=== PATIENT | female | born 1930 | race Caucasian/White ===

== ENCOUNTER 2016-07-20 14:22 | Inpatient (IN) ==
[~2016-07-20 14:22] MED LIST: PANTOPRAZOLE 40 MG TABLET PO SCH
[2016-07-20] MEDS ORDERED: ALBUTEROL 2.5 MG/3 ML NEB RESP TX PRN ×2 (14:51→17:45)
[2016-07-20] MEDS ORDERED: PANTOPRAZOLE 40 MG VIAL IV SCH (15:00)
[2016-07-20] MEDS: DOPamine 800 MG/250 ML PREMIX IV SCH (16:40)
[2016-07-20 17:24] LABS: Basophils # 0.1 10*3/uL (0.0-0.2); Basophils % 0.2 % (0.0-0.8); Eosinophils # 0.1 10*3/uL (0.0-0.87); Eosinophils % 0.2 % (0.00-10.9); Hemoglobin 12.1 GM/DL (12.0-16.0); Immature Granulocytes % 4.8 %; Immature Granulocytes Absolute 1.47 #; Lymphocytes # 0.8 10*3/uL (1.4-4.0); Lymphocytes % 2.6 % (21.3-54.2); Mean Corpuscular HGB Conc 31.8 GM/DL (32-36); Mean Corpuscular Hemoglobin 29 PG (27-34); Mean Corpuscular Volume 91.3 FL (87-102); Mean Platelet Volume 10.5 FL (9.6-12.0); Monocytes # 2.3 10*3/uL (0.11-0.8); Monocytes % 7.7 % (1.7-12.7); NRBC # 0.03 10*3/uL; Neutrophils # 25.6 10*3/uL (1.4-7.4); Neutrophils % 84.5 % (38.7-73.9); Platelet Count 229 T/CUMM (130-400); Red Blood Count 4.16 MC/CUMM (3.8-5.5); Red Cell Distribution Width 20.1 % (9.3-17.3); White Blood Count 30.3 T/CUMM (4-12)
--- NOTE | 2016-07-20 17:29 | Hospitalist History & Physical ---
Assessment and Plan - Time spent with patient Time spent with patient: Greater than 30 minutes (1) Severe sepsis Status: Acute Assessment and plan: Patient presents with severe sepsis with her suspected UTI/possible healthcare associated pneumonia as well as 2 sirs criteria and evidence of acute kidney injury. She will receive IV hydration, franco cultures, empiric IV antibiotics, O2 , vasopressors as needed. Will repeat lactic acid and proceed with sepsis protocol. Current Visit: No (2) Healthcare-associated pneumonia Status: Acute Assessment and plan: We will begin sepsis protocol and treat appropriately for healthcare associated pneumonia. Current Visit: Yes (3) UTI (urinary tract infection) Status: Acute Assessment and plan: She will be cultured and covered with broad-spectrum IV antibiotics until final ID and sensitivity can be obtained. Current Visit: No (4) Renal failure Status: Acute Assessment and plan: Last documented creatinine I can find is in November 2015 which was 1.20. Suspect this is acute on chronic kidney injury. We will hydrate and treat her underlying sepsis and hypotension. Will attempt to avoid any nephrotoxic agents or insults and follow her renal function on a daily basis. Current Visit: Yes History of Present Illness Chief complaint: Abdominal pain and low blood pressure History of present illness: Ms. Bales is a 85 year old white female resident of the custodial, primary care provider Dr. Haley, who apparently had a fall earlier in the week sustaining laceration which was repaired in the emergency department there. At that time CT head revealed no evidence of bleed or acute change CT cervical spine revealed no acute change in CT of the pelvis revealed no acute change she was sent back to the [facility] and this morning apparently has had increasing weakness and noted to have low blood pressure at which time she was sent to the emergency department at [address] [place] [address]. She was evaluated there and felt to have severe sepsis and she received IV Zosyn as well as a fluid bolus of apparently approximately 250 cc followed by normal saline at 75 cc/h. She was also started on dopamine and is been titrated to keep systolic blood pressure greater than 90. The patient is awake and alert and complains of lower abdominal discomfort as well as generalized body aches. Her daughter states that she did have some loose stools today but denies any nausea or vomiting. There has been no history of fever, chills, chest pain, shortness breath, cough or sputum production, focal motor weakness or paresthesias. She does have a history of coronary artery disease status post [place] years ago and a history of CVA which left some speech difficulty and some right sided weakness. Home Medications Medication Instructions Recorded Confirmed Type Allopurinol 100 mg PO BID 10/02/15 07/20/16 History Citalopram [CeleXA] 20 mg PO DAILY 10/02/15 07/20/16 History Furosemide Tab [Lasix Tab] 40 mg PO DAILY 10/02/15 07/20/16 History Potassium Chloride 20 meq PO QAM 10/02/15 07/20/16 History Pravastatin [Pravachol] 40 mg PO DAILY 10/02/15 07/20/16 History Carvedilol [Coreg] 3.125 mg PO BID #30 tablet 10/05/15 07/20/16 Rx Albuterol Sulfate [Albuterol Neb] 2.5 mg RESP TX Q8HR PRN 12/12/15 07/20/16 History Gabapentin 100 mg PO BID 12/12/15 07/20/16 History Acetaminophen Tab [Tylenol Tab] 325 mg PO Q4H PRN #0 tablet 12/16/15 07/20/16 Rx Alum/Mag/Simeth Max Str Liquid 30 ml PO Q4H 03/22/16 07/20/16 History [Mylanta Max Strength Liquid] Ferrous Sulfate [Ferrous Sulfate 325 mg PO DAILY 03/22/16 07/20/16 History Cap] Potassium Chloride 10 meq PO BEDTIME 03/22/16 07/20/16 History Acetamin/Codeine 300-30 Tab 1 tablet PO Q6H PRN 07/20/16 07/20/16 History [Tylenol/Codeine #3] Neomy Sulf/Bacitrac Zn/Poly 1 applic TOP Q12HR 07/20/16 07/20/16 History [Triple Antibiotic Oint] cephALEXin [Keflex] 500 mg PO Q6HR 07/20/16 07/20/16 History Allergies Allergy/AdvReac Type Severity Reaction Status Date / Time No Known Allergies Allergy Unverified 10/02/15 16:58 Medical,Surgical,& Family Hx - Medical History Cardio: History of: CHF, CAD, Hypertension, [place], Cardiovascular Problems Psychological: History of: Depression Neurology: History of: Cerebrovascular Accident Endocrine: History of: Dyslipidemia Rheumatology: History of;: Rheumatoid Arthritis Gastrointestinal: No history of: Gastrointestinal Bleed Musculoskeletal: History of: Musculoskeletal Problems - Surgical History Cardiac Surgeries: Sugical HX of: Cardiac Catheterization, Cardiac Surgery ( CABG 2000, three-vessel) Reproductive Surgeries: Surgical HX of;: Gynecologic Surgery, Hysterectomy - Family History Family History: Reports;: Family Heart Disease, Family Hypertension Denies;: Family Diabetes - Social History Smoking Status: Never smoker Frequency of Alcohol Use: None Type of Drug Use: None Marital Status: Lives With:: [facility] 12 point system: reviewed and no additional remarkable complaints except as stated Exam - Constitutional General appearance: no acute distress - Head Head exam: Present: normocephalic, atraumatic - Eye Eye exam: Present: EOMI. Absent: scleral icterus Pupils: Present: THERESE - ENT ENT exam: Present: normal oropharynx - Neck Neck exam: Absent: lymphadenopathy, meningismus, tenderness, thyromegaly - Respiratory Respiratory exam: Present: clear to auscultation bilaterally. Absent: accessory muscle use, rales, rhonchi, wheezes - Cardiovascular Cardiovascular exam: Present: regular rate and rhythm, tachycardia. Absent: gallop, systolic murmur - GI/Abdominal GI/Abdominal exam: Present: normal bowel sounds, tenderness (She has tenderness about an ventral hernia which is easily reduced), soft. Absent: distended, organomegaly, rebound - Extremities Exam Extremities exam: Present: normal capillary refill. Absent: calf tenderness, edema - Back Exam Back exam: Present: normal inspection - Neurological Exam Neurological exam: Present: alert, CN II-XII intact, motor sensory deficit (Her strength in her upper extremities appears to be symmetric at approximately 5/5 however she is unable to move either of her lower extremities to command), other (She is oriented to person) - Psychiatric Psychiatric exam: Present: normal affect, normal mood. Absent: agitated, anxious - Skin Skin exam: Present: warm, dry. Absent: erythema, rash Results - Labs CBC & BMP: 07/20/16 17:03 Lab Results: I have reviewed the past 24 hour labs Labs: Laboratory studies performed at [facility] revealed a white blood cell count of 24.89, hematocrit 34%, hemoglobin 10.8, platelet count 201,000, white cell differential reveals 73% bands, 5% monos, 3% lymphs, 19% bands her chemistries reveal a sodium of 133, potassium 4.1, chloride 106, dioxide 14, calcium 7.5, creatinine 2.95, BUN of 58, glucose of 102 with a GFR of 16. Urinalysis revealed 20-50 white blood cells per high-powered field. Lactic acid was 1.8. Stool for occult blood was negative. CT of the abdomen and pelvis revealed bilateral basilar effusions and atelectatic changes, small ventral hernia, minimal diverticulosis without diverticulitis or free fluid, previous hysterectomy, Balser calcinosis, cholelithiasis with multiple gallstones present. Chest x-ray revealed pulmonary hypoinflation and cardiomegaly with early pneumonia in the left lateral lower lobe. KUB revealed unremarkable bowel gas pattern with calcified cholelithiasis. - Diagnostic Findings Procedure: Chest x-ray: report reviewed by me, KUB x-ray: report reviewed by me , CT: report reviewed by me Quality Measures - VTE Contraindication to Pharmacological VTE Prophylaxis: High Risk of Bleeding Sepsis - Sepsis Classification of Sepsis: Severe Sepsis - Physical Exam Respiratory exam: clear to auscultation bilaterally Capillary Refill: Less Than 3 Seconds Peripheral pulses: Radial (L): 3+/4+, Radial (R): 3+/4+ Cardiovascular exam: regular rate and rhythm, tachycardia Skin exam: normal color
[2016-07-20 17:40] LABS: INR 1.5; PT Patient Result 15.9 SECS
[2016-07-20] MEDS ORDERED: SODIUM CHLORIDE 0.9% 1,000 ML IV ONE (17:40)
[2016-07-20 17:52] LABS: Lactic Acid 1.3 MMOL/L (0.4-2.0)
[2016-07-20 18:00] LABS: Magnesium 2.1 MG/DL (1.8-2.4); Risk Ratio 4.93; Thyroid Stimulating Hormone 3.25 uIU/ml (0.358-3.74); VLDL CHOLESTEROL 22.8 MG/DL
[2016-07-20 18:04] LABS: Albumin 2.5 G/DL (3.4-5.0); Bilirubin,Total 1.5 MG/DL (0.2-1.0); Calcium 7.4 MG/DL (8.5-10.1); Potassium 3.8 MMOL/L (3.5-5.1)
[2016-07-20 18:12] LABS: Troponin I Only 0.063 NG/ML (0.00-0.045)
[2016-07-20] MEDS ORDERED: LEVOFLOXACIN INJ 750 MG in PREMIX 1 EACH IV ONE (18:30)
[2016-07-20] MEDS: LACTATED RINGERS 1,000 ML IV SCH (18:35)
[2016-07-20 18:54] LABS: Calcium 7.6 MG/DL (8.5-10.1)
[2016-07-20 18:55] LABS: Anisocytosis Slight; Band Neutrophils 1 % (0-10); Lymphocytes 8 % (20-55); Platelet Estimate Normal; Segmented Neutrophils 87 % (50-85); Total Cells Counted 100
[2016-07-20 18:56] LABS: Macrocytosis Slight; Polychromasia Slight
[2016-07-20 19:08] LABS: Apearance,Urine CLOUDY (Clear); Bilirubin,Urine Negative (Negative); Blood, Urine Small mg/dL (Negative); Glucose,Urine (UA) Negative (Negative); Hyaline Casts,Urine 31 /LPF (0-3); Ketones,Urine 5 mg/dL (Negative); Nitrite,Urine Negative (Negative); Protein,Urine 100 MG/DL; RBC,Urine 34 /HPF (0-4); Squamous Epithelial Cell,Urine Many /HPF (0-10); Urine Color Amber (Yellow); Urine Specific Gravity 1.021 (1.001-1.035); Urine Urobilinogen < 2.0 EU/DL (0.2-1.0); WBC,Urine 244 /HPF (0-6)
--- NOTE | 2016-07-20 19:08 | XRay Report ---
Exam: XR chest 1V portable Indication: Sepsis, cardiomegaly Comparison study: 07/20/16 11:26 AM Findings: Cardiac silhouette is enlarged, similar to prior. Postsurgical changes of prior CABG are again noted. The lung lines are noted with patchy perihilar and basilar interstitial and airspace opacities, slightly more prominent on the left and retrocardiac space similar prior likely representing atelectasis and/or underlying interstitial edema. There is no pneumothorax. Osseous structures appear stable. Impression: Low lung volumes likely representing atelectasis although a degree of underlying interstitial edema and/or patchy left perihilar and left basilar/inflammatory infiltrate excluded. Overall appearance is similar to prior. PROCEDURE INTERPRETED AT [facility] DEPARTMENT OF RADIOLOGY Final Report Signed by: Dilip Rabago
[2016-07-20] MEDS ORDERED: VANCOMYCIN INJ 1,000 MG in SODIUM CHLORIDE 0.9% 250 ML IV SCH (20:00)
[2016-07-20] MEDS: PIPERACILLIN/TAZOBACTAM 3,375 MG in SODIUM CHLORIDE 0.9% 100 ML IV SCH (20:35)
[2016-07-20] MEDS: GABAPENTIN 100 MG CAPSULE PO SCH (20:35)
[2016-07-20] MEDS: NEOMYCIN/POLYMYXIN/BACITRACIN OINT 28.4 GM TUBE TOP SCH (20:35)
[2016-07-20] MEDS: POTASSIUM CHLORIDE 10 MEQ TABLET PO SCH (20:35)
[2016-07-20] MEDS: ALLOPURINOL 100 MG TABLET PO SCH (20:36)
[2016-07-21 04:03] LABS: Basophils # 0.1 10*3/uL (0.0-0.2); Basophils % 0.3 % (0.0-0.8); Eosinophils # 0.1 10*3/uL (0.0-0.87); Eosinophils % 0.4 % (0.00-10.9); Hematocrit 39.8 VOL% (35.7-47.0); Hemoglobin 12.8 GM/DL (12.0-16.0); Immature Granulocytes % 1.3 %; Immature Granulocytes Absolute 0.38 #; Lymphocytes % 3.2 % (21.3-54.2); Mean Corpuscular HGB Conc 32.2 GM/DL (32-36); Mean Corpuscular Hemoglobin 29 PG (27-34); Mean Corpuscular Volume 91.3 FL (87-102); Mean Platelet Volume 10.6 FL (9.6-12.0); Monocytes # 1.4 10*3/uL (0.11-0.8); Monocytes % 4.7 % (1.7-12.7); NRBC # 0.06 10*3/uL; Neutrophils # 27.3 10*3/uL (1.4-7.4); Neutrophils % 90.1 % (38.7-73.9); Platelet Count 248 T/CUMM (130-400); Red Blood Count 4.36 MC/CUMM (3.8-5.5); White Blood Count 30.3 T/CUMM (4-12)
[2016-07-21 04:38] LABS: Albumin 2.2 G/DL (3.4-5.0); Calcium 7.7 MG/DL (8.5-10.1); Osmolality,Calculated 291.7 MOS/KG (273-304); Potassium 3.8 MMOL/L (3.5-5.1); Total Protein 5.6 G/DL (6.4-8.3)
[2016-07-21] MEDS: LACTATED RINGERS 1,000 ML IV SCH ×3 (04:50→17:05)
[2016-07-21 04:53] LABS: Band Neutrophils 2 % (0-10); Eosinophils 1 % (0-10); Lymphocytes 4 % (20-55); Myelocytes 1 %; Segmented Neutrophils 86 % (50-85)
[2016-07-21 04:54] LABS: Anisocytosis 1+; Burr Cells 2+; Macrocytosis 1+; Platelet Estimate Normal
[2016-07-21 04:55] LABS: Total Cells Counted 100
[2016-07-21] MEDS: FERROUS SULFATE 325 MG TABLET PO SCH (09:32)
[2016-07-21] MEDS: GABAPENTIN 100 MG CAPSULE PO SCH ×2 (09:32→21:25)
[2016-07-21] MEDS: POTASSIUM CHLORIDE 20 MEQ TABLET PO SCH (09:32)
[2016-07-21] MEDS: PANTOPRAZOLE 40 MG TABLET PO SCH (09:32)
[2016-07-21] MEDS: PRAVASTATIN 40 MG TABLET PO SCH (09:32)
[2016-07-21] MEDS: ALLOPURINOL 100 MG TABLET PO SCH ×2 (09:32→21:25)
[2016-07-21] MEDS: CITALOPRAM 20 MG TABLET PO SCH (09:32)
[2016-07-21] MEDS: PIPERACILLIN/TAZOBACTAM 3,375 MG in SODIUM CHLORIDE 0.9% 100 ML IV SCH ×2 (09:33→21:28)
[2016-07-21] MEDS: NEOMYCIN/POLYMYXIN/BACITRACIN OINT 28.4 GM TUBE TOP SCH ×2 (09:33→21:28)
--- NOTE | 2016-07-21 12:21 | Ultrasound Report ---
US abdomen Indication: Abdominal pain, renal failure. Comparison: Prior renal ultrasound 12/14/2015. Technique: Multiple longitudinal and transverse real-time sonographic images of the right upper quadrant of the abdomen are obtained. Findings: The liver measures 13.8 cm cm and demonstrates normal echogenicity without focal abnormality. Hepatic and portal veins are patent with normal directional flow. Several stones are noted within the gallbladder. There is no wall thickening or pericholecystic fluid. Sonographic Fernández sign is negative. The stones are mobile.. The common duct measures 0.5 cm in diameter and there is no evidence of intrahepatic ductal dilation. The distal aorta is obscured. The visualized aorta is nonaneurysmal. IVC is patent. Spleen is not enlarged. Pancreas is not well visualized due to obscuration from overlying bowel gas. Right kidney measures 9.1 x 4.7 x 4.4 cm. Left kidney measures 10.5 x 5.6 x 4.1 cm. Renal cortical echogenicity is within normal limits. There is no hydronephrosis. There is no ascites. IMPRESSION: No acute sonographic abnormality within the abdomen. Cholelithiasis with no sonographic evidence of acute cholecystitis. Ultrasound images were captured and stored. PROCEDURE INTERPRETED AT [facility] DEPARTMENT OF RADIOLOGY Final Report Signed by: Dilip Rabago
--- NOTE | 2016-07-21 12:53 | Hospitalist Progress Note ---
Assessment and Plan (1) UTI (urinary tract infection) Status: Acute Assessment and plan: The patient is admitted from the [facility] with evidence of severe sepsis due to urinary tract infection. Urinalysis shows pyuria. We await urine and blood cultures and in the meantime continue IV antibiotics. The patient will be started on oral [place] for leg pain with backup Dilaudid as required for breakthrough pain. Current Visit: No Qualifiers: Urinary tract infection type: acute cystitis Hematuria presence: without hematuria Qualified Code(s): N30.00 - Acute cystitis without hematuria (2) CVA (cerebral vascular accident) Status: Acute Current Visit: No (3) Severe sepsis Status: Acute Current Visit: No Hospitalist: Subjective Interval history: The patient is awake and talkative. Her conversation is difficult to understand due to weakness. The patient endorses the daughters description of her having pain in her legs. Exam - Constitutional Vitals: Period Temp Pulse Resp BP Sys/Garces Pulse Ox Last 24 Hr 97.8 F-98.5 F 93-123 6-22 72-143/42-71 91-100 Exam: Constitutional System: Moderate distress. Mild rhythmic tremulousness. Head: Normocephalic, atraumatic. Ears, Nose and Throat System: No evidence of Otitis or Mastoiditis. No epistaxis or discharge Eyes System: Pupils equal, round, and reactive. Extraocular muscles intact. Neck: Supple, without adenopathy, No jugular venous distention. No thyromegaly , neck mass, or prior surgery apparent. Respiratory System: Chest clear to auscultation. Cardiovascular System: Heart with regular rate and rhythm. No murmur. GI System: Abdomen soft, generalized moderate tender. Hypo-active bowel sounds present. Musculoskeletal System: limbs with no pedal edema. Full distal pulses. Neurological System: No discernable sensory deficit. Results - Labs CBC & BMP: 07/21/16 03:40 07/21/16 03:40 Lab Results: I have reviewed the past 24 hour labs Quality Measures - VTE Contraindication to Pharmacological VTE Prophylaxis: High Risk of Bleeding
[2016-07-21] MEDS: DOPamine 800 MG/250 ML PREMIX IV SCH (19:42)
[2016-07-21] MEDS: HYDROmorphone 2 MG/1 ML VIAL IV PRN (19:44)
[2016-07-21] MEDS: POTASSIUM CHLORIDE 10 MEQ TABLET PO SCH (21:24)
[2016-07-22] MEDS: LACTATED RINGERS 1,000 ML IV SCH ×3 (01:51→10:47)
[2016-07-22] MEDS ORDERED: TERBUTALINE 1 MG/1 ML VIAL SUBCUT ONE (03:58)
[2016-07-22 07:02] LABS: Basophils # 0.1 10*3/uL (0.0-0.2); Basophils % 0.3 % (0.0-0.8); Eosinophils # 0.2 10*3/uL (0.0-0.87); Eosinophils % 0.6 % (0.00-10.9); Hematocrit 37.8 VOL% (35.7-47.0); Hemoglobin 12.1 GM/DL (12.0-16.0); Immature Granulocytes % 1.2 %; Lymphocytes # 1.1 10*3/uL (1.4-4.0); Lymphocytes % 4.1 % (21.3-54.2); Mean Corpuscular Hemoglobin 29 PG (27-34); Mean Corpuscular Volume 90.9 FL (87-102); Mean Platelet Volume 10.6 FL (9.6-12.0); Monocytes # 1.1 10*3/uL (0.11-0.8); Monocytes % 4.4 % (1.7-12.7); NRBC # 0.09 10*3/uL; Neutrophils # 23.1 10*3/uL (1.4-7.4); Neutrophils % 89.4 % (38.7-73.9); Platelet Count 220 T/CUMM (130-400); Red Blood Count 4.16 MC/CUMM (3.8-5.5); Red Cell Distribution Width 20.2 % (9.3-17.3); White Blood Count 25.8 T/CUMM (4-12)
[2016-07-22 07:28] LABS: Calcium 7.9 MG/DL (8.5-10.1); Magnesium 1.8 MG/DL (1.8-2.4); Osmolality,Calculated 292.7 MOS/KG (273-304); Potassium 3.9 MMOL/L (3.5-5.1)
[2016-07-22 07:28] LABS: Band Neutrophils 3 % (0-10); Eosinophils 1 % (0-10); Lymphocytes 1 % (20-55); Nucleated Red Blood Cells 1 (0-5); Segmented Neutrophils 91 % (50-85); Total Cells Counted 100
[2016-07-22 07:29] LABS: Burr Cells Slight; Hypochromasia 1+; Macrocytosis Slight; Ovalocytes Slight; Platelet Estimate Adequate
[2016-07-22] MEDS: DOPamine 800 MG/250 ML PREMIX IV SCH ×2 (07:50→18:34)
[2016-07-22] MEDS: PIPERACILLIN/TAZOBACTAM 3,375 MG in SODIUM CHLORIDE 0.9% 100 ML IV SCH (08:42)
[2016-07-22] MEDS: POTASSIUM CHLORIDE 20 MEQ TABLET PO SCH (08:42)
[2016-07-22] MEDS: PRAVASTATIN 40 MG TABLET PO SCH (08:42)
[2016-07-22] MEDS: GABAPENTIN 100 MG CAPSULE PO SCH ×2 (08:43→20:07)
[2016-07-22] MEDS: PANTOPRAZOLE 40 MG TABLET PO SCH (08:43)
[2016-07-22] MEDS: CITALOPRAM 20 MG TABLET PO SCH (08:43)
[2016-07-22] MEDS: FERROUS SULFATE 325 MG TABLET PO SCH (08:43)
[2016-07-22] MEDS: ALLOPURINOL 100 MG TABLET PO SCH ×2 (08:43→20:07)
[2016-07-22] MEDS ORDERED: SODIUM CHLORIDE 0.9% 1,000 ML IV SCH (10:00)
--- NOTE | 2016-07-22 10:38 | Hospitalist Progress Note ---
Assessment and Plan (1) UTI (urinary tract infection) Status: Acute Assessment and plan: The patient is admitted from the [facility] with evidence of severe sepsis due to urinary tract infection. Urinalysis shows pyuria. Culture of the urine reveals Enterobacter sensitive to Cipro and cefepime. I am going to discontinue Zosyn and start cefepime. We will recheck electrolytes tomorrow. Current Visit: No Qualifiers: Urinary tract infection type: acute cystitis Hematuria presence: without hematuria Qualified Code(s): N30.00 - Acute cystitis without hematuria (2) CVA (cerebral vascular accident) Status: Acute Current Visit: No (3) Severe sepsis Status: Acute Current Visit: No Hospitalist: Subjective Interval history: Ms. FONG is receiving treatment for urinary tract infection. Cultures reveal Enterobacter. The patient is not complaining of shortness of breath or pain at present. The nurse notes decreased urine output. Exam - Constitutional Vitals: Period Temp Pulse Resp BP Sys/Garces Pulse Ox Last 24 Hr 96.4 F-97.2 F 79-113 11-25 68-135/39-78 90-97 Exam: Constitutional System: Moderate distress. Mild rhythmic tremulousness. Head: Normocephalic, atraumatic. Ears, Nose and Throat System: No evidence of Otitis or Mastoiditis. No epistaxis or discharge Eyes System: Pupils equal, round, and reactive. Extraocular muscles intact. Neck: Supple, without adenopathy, No jugular venous distention. No thyromegaly , neck mass, or prior surgery apparent. Respiratory System: Chest clear to auscultation. Cardiovascular System: Heart with regular rate and rhythm. No murmur. GI System: Abdomen soft, generalized moderate tender. Hypo-active bowel sounds present. Musculoskeletal System: limbs with no pedal edema. Full distal pulses. Neurological System: No discernable sensory deficit. Results - Labs CBC & BMP: 07/22/16 06:30 07/22/16 06:29 Lab Results: I have reviewed the past 24 hour labs Quality Measures - VTE Contraindication to Pharmacological VTE Prophylaxis: High Risk of Bleeding
[2016-07-22] MEDS: HYDROmorphone 2 MG/1 ML VIAL IV PRN (10:42)
[2016-07-22] MEDS: NEOMYCIN/POLYMYXIN/BACITRACIN OINT 28.4 GM TUBE TOP SCH ×2 (10:44→20:11)
[2016-07-22] MEDS: CEFEPIME 500 MG in SODIUM CHLORIDE 0.9% 100 ML IV SCH (12:00)
[2016-07-22] MEDS ORDERED: SODIUM CHLORIDE 0.9% 1,000 ML IV ONE (17:08)
[2016-07-22] MEDS ORDERED: LEVOFLOXACIN INJ 500 MG in PREMIX 1 EACH IV SCH (18:00)
[2016-07-22] MEDS: POTASSIUM CHLORIDE 10 MEQ TABLET PO SCH (20:07)
[2016-07-23] MEDS: LACTATED RINGERS 1,000 ML IV SCH ×3 (02:29→17:35)
[2016-07-23 05:21] LABS: Basophils # 0.1 10*3/uL (0.0-0.2); Basophils % 0.3 % (0.0-0.8); Eosinophils # 0.3 10*3/uL (0.0-0.87); Eosinophils % 1.1 % (0.00-10.9); Hematocrit 36.7 VOL% (35.7-47.0); Hemoglobin 12.1 GM/DL (12.0-16.0); Immature Granulocytes % 1.3 %; Immature Granulocytes Absolute 0.29 #; Lymphocytes % 4.5 % (21.3-54.2); Mean Corpuscular Hemoglobin 30 PG (27-34); Mean Corpuscular Volume 89.7 FL (87-102); Mean Platelet Volume 10.8 FL (9.6-12.0); Monocytes % 4.4 % (1.7-12.7); NRBC # 0.07 10*3/uL; Neutrophils # 19.3 10*3/uL (1.4-7.4); Neutrophils % 88.4 % (38.7-73.9); Platelet Count 205 T/CUMM (130-400); Red Blood Count 4.09 MC/CUMM (3.8-5.5); Red Cell Distribution Width 20.3 % (9.3-17.3); White Blood Count 21.9 T/CUMM (4-12)
[2016-07-23 05:59] LABS: Calcium 7.3 MG/DL (8.5-10.1); Osmolality,Calculated 286.2 MOS/KG (273-304); Potassium 4.5 MMOL/L (3.5-5.1)
[2016-07-23 06:14] LABS: Hypochromasia 1+; Lymphocytes 3 % (20-55); Nucleated Red Blood Cells 1 (0-5); Segmented Neutrophils 94 % (50-85); Total Cells Counted 100
[2016-07-23 06:16] LABS: Burr Cells 1+; Microcytosis 1+
[2016-07-23] MEDS ORDERED: FUROSEMIDE 40 MG/4 ML VIAL IV ONE (08:35)
[2016-07-23] MEDS: CITALOPRAM 20 MG TABLET PO SCH (10:14)
[2016-07-23] MEDS: FERROUS SULFATE 325 MG TABLET PO SCH (10:16)
[2016-07-23] MEDS: POTASSIUM CHLORIDE 20 MEQ TABLET PO SCH (10:16)
[2016-07-23] MEDS: ALLOPURINOL 100 MG TABLET PO SCH ×2 (10:17→22:14)
[2016-07-23] MEDS: NEOMYCIN/POLYMYXIN/BACITRACIN OINT 28.4 GM TUBE TOP SCH ×2 (10:17→22:14)
[2016-07-23] MEDS: PANTOPRAZOLE 40 MG TABLET PO SCH (10:17)
[2016-07-23] MEDS: PRAVASTATIN 40 MG TABLET PO SCH (10:17)
[2016-07-23] MEDS: GABAPENTIN 100 MG CAPSULE PO SCH ×2 (10:17→22:14)
--- NOTE | 2016-07-23 10:57 | Physician Query Form ---
CLICK EDIT DOCUMENT TO SELECT QUERY ANSWER --> OK --> SIGN Jaqueline Landrum RN Clinical Life Manager W) [phone] (f) [phone] [email or web address] PROVIDERS: Make your selection(s) from the choices in EACH section by typing an "x" and enter comments in the comment section. Please use your independent medical judgment in providing your response. This request does not imply that any particular answer is desired or expected. CLINICAL INDICATORS: (Providers should not edit this section) Based on documentation of "History of CHF. Echocardiogram results from September 2015: Normal left ventricular cavity size with increased left ventricular wall thickness and left ventricular ejection fraction is estimated at 50-55 %". BNP= 3449. Pt. treated with PO Lasix as home medication. Please provide further specificity regarding CHF. ACUITY: ( ) Acute ( ) Chronic ( ) Acute on Chronic ( ) Clinicallly unable to determine TYPE: ( ) Systolic (HFrEF - heart failure with reduced systolic function/EF) ( ) Diastolic (HFpEF - heart failure with preserved systolic function/EF) ( ) Combined Systolic/Diastolic ( ) Other, please specify: ( ) Clinically unable to determine ( ) The patient does NOT have CHF COMMENTS: PLEASE ALSO DOCUMENT RESPONSE IN PROGRESS NOTES AND/OR DISCHARGE SUMMARY Use of terms such as suspected, likely, or probable (associated with a specific diagnosis that is being evaluated, monitored, or treated as if it exists) are acceptable and can be restated in the discharge summary if not ruled out. MTDD
[2016-07-23] MEDS: CEFEPIME 500 MG in SODIUM CHLORIDE 0.9% 100 ML IV SCH (11:00)
--- NOTE | 2016-07-23 12:37 | Hospitalist Progress Note ---
Assessment and Plan (1) UTI (urinary tract infection) Status: Acute Assessment and plan: The patient is admitted from the correction with evidence of severe sepsis due to urinary tract infection. Urinalysis shows pyuria. Culture of the urine reveals Enterobacter sensitive to Cipro and cefepime. I am going to continue Levaquin and cefepime. We will recheck electrolytes tomorrow. Current Visit: No Qualifiers: Urinary tract infection type: acute cystitis Hematuria presence: without hematuria Qualified Code(s): N30.00 - Acute cystitis without hematuria (2) CVA (cerebral vascular accident) Status: Acute Current Visit: No (3) Severe sepsis Status: Acute Current Visit: No Hospitalist: Subjective Interval history: The patient is admitted to the hospital with gram-negative sepsis. She is found to have Enterobacter which is sensitive to cefepime and Levaquin. The patient is receiving [place] to help with chronic pain. Hemodynamics are improving but she still requires pressor at this time. Urine output is scanty but creatinine is relatively stable at 2.7. I am going to give a little Lasix today to see if we can improve urine output. Exam - Constitutional Vitals: Period Temp Pulse Resp BP Sys/Garces Pulse Ox Last 24 Hr 96.8 F-97.8 F 71-106 10-28 76-136/41-89 92-99 Exam: Constitutional System: Moderate distress. Mild rhythmic tremulousness. Head: Normocephalic, atraumatic. Ears, Nose and Throat System: No evidence of Otitis or Mastoiditis. No epistaxis or discharge Eyes System: Pupils equal, round, and reactive. Extraocular muscles intact. Neck: Supple, without adenopathy, No jugular venous distention. No thyromegaly , neck mass, or prior surgery apparent. Respiratory System: Chest clear to auscultation. Cardiovascular System: Heart with regular rate and rhythm. No murmur. GI System: Abdomen soft, generalized moderate tender. Hypo-active bowel sounds present. Musculoskeletal System: limbs with no pedal edema. Full distal pulses. Neurological System: No discernable sensory deficit. Results - Labs CBC & BMP: 07/23/16 04:54 07/23/16 04:54 Lab Results: I have reviewed the past 24 hour labs Quality Measures - VTE Contraindication to Pharmacological VTE Prophylaxis: High Risk of Bleeding
[2016-07-23] MEDS: DESITIN 4OZ/NYSTATIN 15 GRAM MIXTURE PASTE TOP SCH ×2 (12:45→22:14)
--- NOTE | 2016-07-23 13:19 | Physician Query Form ---
CLICK EDIT DOCUMENT TO SELECT QUERY ANSWER --> OK --> SIGN Jaqueline Landrum RN Clinical Project Management Consultant W) [phone] (f) [phone] [email or web address] PROVIDERS: Make your selection(s) from the choices in EACH section by typing an "x" and enter comments in the comment section. Please use your independent medical judgment in providing your response. This request does not imply that any particular answer is desired or expected. CLINICAL INDICATORS: (Providers should not edit this section) Based on documentation of "History of CHF. Echocardiogram results from September 2015: Normal left ventricular cavity size with increased left ventricular wall thickness and left ventricular ejection fraction is estimated at 50-55 %". BNP= 3449. Pt. treated with PO Lasix as home medication. Please provide further specificity regarding CHF. ACUITY: ( X) Acute ( ) Chronic ( ) Acute on Chronic ( ) Clinicallly unable to determine TYPE: (X ) Systolic (HFrEF - heart failure with reduced systolic function/EF) ( ) Diastolic (HFpEF - heart failure with preserved systolic function/EF) ( ) Combined Systolic/Diastolic ( ) Other, please specify: ( ) Clinically unable to determine ( ) The patient does NOT have CHF COMMENTS: PLEASE ALSO DOCUMENT RESPONSE IN PROGRESS NOTES AND/OR DISCHARGE SUMMARY Use of terms such as suspected, likely, or probable (associated with a specific diagnosis that is being evaluated, monitored, or treated as if it exists) are acceptable and can be restated in the discharge summary if not ruled out. MTDD
[2016-07-23] MEDS: HYDROmorphone 2 MG/1 ML VIAL IV PRN ×2 (16:06→16:50)
--- NOTE | 2016-07-23 19:55 | Event Note ---
Patient's blood pressures taken a significant downward trend. She is receiving IV fluids up on the floor. Current blood pressure 63/38. Family is very concerned. I do feel that what would be best would be moving patient back down to the unit for continued observation in the unit.
[2016-07-23] MEDS ORDERED: DOPamine 800 MG/250 ML PREMIX IV ONE (20:21)
[2016-07-23] MEDS ORDERED: DOPamine 800 MG/250 ML PREMIX IV SCH (20:30)
[2016-07-23] MEDS: POTASSIUM CHLORIDE 10 MEQ TABLET PO SCH (22:13)
[2016-07-24] MEDS: LACTATED RINGERS 1,000 ML IV SCH ×3 (00:19→12:02)
[2016-07-24] MEDS: LEVALBUTEROL 1.25 MG/3 ML NEB RESP TX SCH ×4 (00:38→15:12)
[2016-07-24 07:24] LABS: Basophils # 0.1 10*3/uL (0.0-0.2); Basophils % 0.3 % (0.0-0.8); Eosinophils # 0.1 10*3/uL (0.0-0.87); Eosinophils % 0.4 % (0.00-10.9); Hematocrit 40.6 VOL% (35.7-47.0); Hemoglobin 13.3 GM/DL (12.0-16.0); Immature Granulocytes Absolute 0.69 #; Lymphocytes # 0.9 10*3/uL (1.4-4.0); Lymphocytes % 3.8 % (21.3-54.2); Mean Corpuscular HGB Conc 32.8 GM/DL (32-36); Mean Corpuscular Hemoglobin 30 PG (27-34); Mean Corpuscular Volume 90.2 FL (87-102); Mean Platelet Volume 10.5 FL (9.6-12.0); Monocytes # 0.9 10*3/uL (0.11-0.8); Monocytes % 3.7 % (1.7-12.7); Neutrophils # 20.6 10*3/uL (1.4-7.4); Neutrophils % 88.8 % (38.7-73.9); Platelet Count 193 T/CUMM (130-400); Red Cell Distribution Width 20.8 % (9.3-17.3); White Blood Count 23.1 T/CUMM (4-12)
--- NOTE | 2016-07-24 07:30 | XRay Report ---
Referring Physician: Magan Robison Exam: XR chest 1V portable Date: July 24, 2016 at 3:36 AM Reason: Dyspnea/shortness of breath Comparison: Chest one view portable July 20, 2016 Findings: The cardiac silhouette is again enlarged, and the patient is status post sternotomy. There are scattered opacities within the mid and lower lung zones, mainly on the left. This could represent pulmonary edema, atelectasis and/or pneumonia. No pneumothorax is identified, but there is mild left pleural fluid and possible minimal right pleural fluid. The osseous structures appear stable. Impression: The opacities within the right lower lung zone may be slightly more prominent. The study is otherwise similar to before. PROCEDURE INTERPRETED AT [facility] DEPARTMENT OF RADIOLOGY Final Report Signed by: Dr. Mohit Moreno
[2016-07-24 07:55] LABS: Albumin 2.2 G/DL (3.4-5.0); Bilirubin,Total 1.5 MG/DL (0.2-1.0); Calcium 7.6 MG/DL (8.5-10.1); Magnesium 1.9 MG/DL (1.8-2.4); Osmolality,Calculated 283.4 MOS/KG (273-304); Potassium 5.1 MMOL/L (3.5-5.1); Total Protein 5.6 G/DL (6.4-8.3)
[2016-07-24 07:58] LABS: Band Neutrophils 1 % (0-10); Lymphocytes 4 % (20-55); Metamyelocytes 1 %; Nucleated Red Blood Cells 2 (0-5); Segmented Neutrophils 90 % (50-85); Total Cells Counted 100
[2016-07-24 07:59] LABS: Burr Cells 1+; Microcytosis 1+
[2016-07-24 08:00] LABS: Platelet Estimate Adequate; Polychromasia Slight
[2016-07-24] MEDS: POTASSIUM CHLORIDE 20 MEQ TABLET PO SCH (08:19)
[2016-07-24] MEDS: FERROUS SULFATE 325 MG TABLET PO SCH (08:19)
[2016-07-24] MEDS: CITALOPRAM 20 MG TABLET PO SCH (08:19)
[2016-07-24] MEDS: GABAPENTIN 100 MG CAPSULE PO SCH (08:19)
[2016-07-24] MEDS: PANTOPRAZOLE 40 MG TABLET PO SCH (08:20)
[2016-07-24] MEDS: ALLOPURINOL 100 MG TABLET PO SCH (08:20)
[2016-07-24] MEDS: PRAVASTATIN 40 MG TABLET PO SCH (08:20)
[2016-07-24] MEDS: HYDROmorphone 2 MG/1 ML VIAL IV PRN (08:58)
[2016-07-24] MEDS: NEOMYCIN/POLYMYXIN/BACITRACIN OINT 28.4 GM TUBE TOP SCH (11:18)
[2016-07-24] MEDS: DESITIN 4OZ/NYSTATIN 15 GRAM MIXTURE PASTE TOP SCH (11:19)
--- NOTE | 2016-07-24 11:41 | Event Note ---
My presence was requested by the family and primary decision maker for Ms. Bales to change her resuscitation status to comfort care. She is currently DNR and on pressors and the family has agreed to withdraw any life prolonging measures and allow the patient's condition to progress naturally. As such, we will label the chart DNR comfort care.
[2016-07-24] MEDS: CEFEPIME 500 MG in SODIUM CHLORIDE 0.9% 100 ML IV SCH (12:02)
[2016-07-24] MEDS ORDERED: HYDROmorphone 2 MG/1 ML VIAL IV PRN (12:12)
[2016-07-24 14:06] VITALS: BP 75/54
--- NOTE | 2016-07-24 17:19 | Discharge Summary ---
Hospital Course - Hospital Course Hospital Course: Patient was admitted from her senior living with weakness and hypotension. Of note, she recently was seen at an OSH after a fall and sustained a laceration that required suture repair. She was sent back to her NH and then presented to [facility] with UTI and sepsis. Enterobacter Cloacae was isolated on urine culture. Blood cultures were without growth after 3 days. She was initiated on broad spectrum abx with Levofloxacin + Cefepime and required pressor support as well. Additionally, she became profoundly hypoxic requiring 100% NRB. Throughout her admission, family members were being updated of her status as well as her prognosis for recovery. They subsequently decided to make Mrs. Bales DNR comfort measures and to withdraw any ongoing life sustaining treatments. The family's wishes were obliged. Pressors as well as abx were discontinued. Mrs. Bales then at 1325 after withdrawal of care with family members at her bedside. Diagnosis - Discharge Diagnosis (1) UTI (urinary tract infection) Status: Acute (2) Elevated brain natriuretic peptide (BNP) level Status: Acute (3) Altered mental status Status: Acute (4) Elevated lactic acid level Status: Acute (5) Respiratory distress Status: Acute (6) Septic shock Status: Acute (7) Respiratory failure Status: Acute Discharge Plan - Discharge Data Disposition: - Discharge Medications No Action Citalopram [CeleXA] 20 mg PO DAILY Allopurinol 100 mg PO BID Potassium Chloride 20 meq PO QAM Furosemide Tab [Lasix Tab] 40 mg PO DAILY Pravastatin [Pravachol] 40 mg PO DAILY Carvedilol [Coreg] 3.125 mg PO BID #30 tablet Albuterol Sulfate [Albuterol Neb] 2.5 mg RESP TX Q8HR PRN PRN Reason: Shortness Of Breath Gabapentin 100 mg PO BID Acetaminophen Tab [Tylenol Tab] 325 mg PO Q4H PRN #0 tablet PRN Reason: fever, headache/body aches Alum/Mag/Simeth Max Str Liquid [Mylanta Max Strength Liquid] 30 ml PO Q4H Ferrous Sulfate [Ferrous Sulfate Cap] 325 mg PO DAILY Potassium Chloride 10 meq PO BEDTIME cephALEXin [Keflex] 500 mg PO Q6HR Acetamin/Codeine 300-30 Tab [Tylenol/Codeine #3] 1 tablet PO Q6H PRN PRN Reason: Pain Neomy Sulf/Bacitrac Zn/Poly [Triple Antibiotic Oint] 1 applic TOP Q12HR - Follow Up or Referral - Forms/Instructions Exam - Constitutional Vitals: Period Temp Pulse Resp BP Sys/Garces Pulse Ox Last 24 Hr 95.9 F-97.3 F 78-115 4-23 40-137/20-90 72-100 Discharge Results Procedures and tests throughout hospitalization: Pending Orders 07/20/16 18:12 Blood Culture Stat Labs on day of discharge: Labs from last 24 hours 07/24/16 07/24/16 07/24/16 07:19 07:19 07:19 WBC 23.1 H RBC 4.50 Hgb 13.3 Hct 40.6 MCV 90.2 MCH 30 MCHC 32.8 RDW 20.8 H Plt Count 193 MPV 10.5 Neut % (Auto) 88.8 H Lymph % (Auto) 3.8 L Perkins % (Auto) 3.7 Eos % (Auto) 0.4 Baso % (Auto) 0.3 Neut # (Auto) 20.6 H Lymph # (Auto) 0.9 L Perkins # (Auto) 0.9 H Eos # (Auto) 0.1 Baso # (Auto) 0.1 Total Counted 100 Immature Gran % 3.0 Nucleated RBC % 1.3 Immature Gran # 0.69 Segmented Neutrophils 90 H Band Neutrophils 1 Lymphocytes 4 L Monocytes 4 Metamyelocytes 1 Nucleated RBCs 2 Nucleated RBCs # 0.30 Platelet Estimate Adequate Polychromasia Slight Microcytosis 1+ [place] Cells 1+ Sodium 133 L Potassium 5.1 Chloride 107 Carbon Dioxide 12 L Anion Gap 19.1 H BUN 69 H Creatinine 3.00 H GFR Calculation 15 BUN/Creatinine Ratio 23.00 H Glucose 70 L Calculated Osmolality 283.4 Calcium 7.6 L Magnesium 1.9 Total Bilirubin 1.50 H AST 58 H ALT 26 Alkaline Phosphatase 165 H B-Natriuretic Peptide > 5000 H Total Protein 5.6 L Albumin 2.2 L Globulin 3.4 Albumin/Globulin Ratio 0.6 L Preliminary micro results at discharge 07/20/16 18:12 Blood Culture - Preliminary Blood No growth at 3 days 07/20/16 18:12 Blood Culture - Preliminary Blood No growth at 3 days DS: Provider Date of admission: 07/20/16 16:11 Primary care physician: . No PCP Attending physician on admission: Sarah Freire MD Consults: 07/20/16 16:56 Consult to Dietitian [CONS] Routine Reason for Dietitian: Dietary Consult Consult Comment: recent weight loss 07/20/16 18:32 Consult to Pharmacy [CONS] Routine Reason for Pharmacy Consult: Dose/Manage Vancomycin Adjust Meds Renal Funct Dose/Manage Antibiotics 07/21/16 13:45 Consult to Wound Care - [place] [CONS] Routine Reason for Wound Care: Wound Care Management Discharging clinician: Nelly Lopez MD Expected date of discharge: 07/24/16
== END 2016-07-24 13:25 | disposition expired | DRG 871 ==
LOC: N.ICU 16:11 → SUATTDRO 16:11 → N.5E 07-23 15:26 → N.CC 07-23 20:04
PROVIDERS: ADMIT Internal Medicine; ATTEND Internal Medicine